=== PATIENT | male | born 1945 | race Caucasian/White ===

== ENCOUNTER 2020-06-18 13:14 | Emergency (ER) | payer OTHER ==
[~2020-06-18] VITALS: Ht 180.3 cm; Wt 64.4 kg
--- NOTE | 2020-06-18 13:25 | NUR ---
Patient to ER bed 03 to gown for evaluation. Side rails up.
[2020-06-18 13:30] VITALS: BP_SYST 114
--- NOTE | 2020-06-18 13:30 | NUR ---
pt arrives from home w/ c/o rectal bleeding for almost one year. Pt has not been able to see a GI doctor. Pt states seeing blood on the toliet paper when she wipes. VVS are stable. Will continue to monitor
[2020-06-18] MEDS ORDERED: PANTOPRAZOLE SODIUM 40 MG/VIAL (PROTONIX) IVP ONE (13:45)
--- NOTE | 2020-06-18 13:48 | NUR ---
ER at bedside examining patient.
--- NOTE | 2020-06-18 14:00 | NUR ---
# 20 gauge angiocath placed to RAC. Use of asceptic technique. Opsite placed over site. Blood return noted. Blood for lab drawn from site. Flushed with 10 cc of normal saline. No evidence of infiltration noted. Patient tolerated well.
--- NOTE | 2020-06-18 14:10 | NUR ---
Patient transported to radiology via gurney, accompanied by public health technologist.
--- NOTE | 2020-06-18 14:30 | NUR ---
medicated the w/ Portonix per MD order
[2020-06-18 14:37] LABS: BASOPHILS # (AUTO) 0.1 K/uL (0.0-0.2); BASOPHILS % (AUTO) 0.6 % (0.0-2.0); EOSINOPHILS # (AUTO) 1.1 K/uL (0.0-0.4); EOSINOPHILS % (AUTO) 10.8 % (0.0-4.0); HEMATOCRIT 40.3 % (36-54); HEMOGLOBIN 13.6 g/dL (14.0-18.0); LYMPHOCYTES # (AUTO) 1.8 K/uL (1.0-5.5); LYMPHOCYTES % (AUTO) 18.1 % (20.5-51.5); MEAN CORPUSCULAR HEMOGLOBIN 34 pg (27-31); MEAN CORPUSCULAR HGB CONC 34 % (32-36); MEAN CORPUSCULAR VOLUME 101 fL (79.0-98.0); MONOCYTES # (AUTO) 0.8 K/uL (0.0-1.0); NEUTROPHILS # (AUTO) 6.2 K/uL (1.8-7.7); NEUTROPHILS % (AUTO) 62.5 % (40.0-70.0); PLATELET COUNT (AUTO) 218 K/uL (130-430); RED BLOOD CELL COUNT(AUTO) 3.98 MIL/uL (4.2-6.2); WHITE BLOOD COUNT (AUTO) 9.9 K/uL (4.8-10.8)
[2020-06-18 15:01] LABS: ANION GAP 5 (5-15); CALCIUM 8.5 mg/dL (8.4-11.0); CHLORIDE 107 mmol/L (98-107); CREATININE 1.19 mg/dL (0.55-1.30); GLUCOSE 79 mg/dL (70-99); POTASSIUM 4.1 mmol/L (3.5-5.1); SODIUM SERUM 140 mmol/L (136-145); UREA NITROGEN, BLOOD 13 mg/dL (8-21)
[2020-06-18 15:06] LABS: ALANINE AMINOTRANSFERASE 16 U/L (12-78); ALBUMIN 3.1 g/dL (3.4-4.8); ASPARTATE AMINOTRANSFERASE 17 U/L (10-37); TOTAL BILIRUBIN 0.5 mg/dL (0.0-1.0)
[2020-06-18 15:11] LABS: PROTHROMBIN TIME 9.9 SECS (9.5-12.5)
[2020-06-18 16:07] VITALS: BP_SYST 114
== END 2020-06-18 16:00 | disposition home or self-care (01) ==
LOC: SED 13:14
DX: K62.5 Hemorrhage of anus and rectum (principal); Z88.5 Allergy status to narcotic agent
CPT/HCPCS: 36415; 74176; 80053; 85025; 85610; 85730; 96374; 99284; C9113

== ENCOUNTER 2020-08-24 08:44 | Day surgery (SDC) | payer OTHER, SELFPAY ==
[~2020-08-24] VITALS: Ht 175.3 cm; Wt 67.6 kg
[~2020-08-24 08:44] MED LIST: CEFAZOLIN SOD 1 GM in D5W 50 ML IV ONE
[2020-08-24] MEDS ORDERED: DEXAMETHASONE SOD PHOSPHATE 4 MG/ML VIAL IVP ONE (10:11)
[2020-08-24] MEDS ORDERED: ONDANSETRON HCL 4 MG/2 ML VIAL IVP ONE (10:11)
[2020-08-24] MEDS ORDERED: fentaNYL CITRATE/PF 100 MCG/2 ML AMP IVP ONE (10:11)
[2020-08-24] MEDS ORDERED: MIDAZOLAM HCL 5 MG/5 ML VIAL IVP ONE (10:11)
[2020-08-24] MEDS ORDERED: NS IRRIG SOLN 1000 ML IR ONE (10:11)
[2020-08-24] MEDS ORDERED: PROPOFOL 200MG/ 20ML VIAL (DIPRIVAN) IV ONE (10:11)
[2020-08-24] MEDS ORDERED: SEVOFLURANE 15 MIN GAS INH ONE (10:11)
[2020-08-24] MEDS ORDERED: KETOROLAC TROMETHAMINE 30 MG VIAL IVP ONE (10:11)
[2020-08-24] MEDS ORDERED: MEPERIDINE HCL/PF 25 MG/ML DISP.SYRIN IVP PRN (11:00)
[2020-08-24] MEDS ORDERED: LR 1,000 ML IV SCH (11:00)
[2020-08-24] MEDS ORDERED: ONDANSETRON HCL 4 MG/2 ML VIAL IVP PRN (11:00)
[2020-08-24] MEDS ORDERED: HYDROmorphone 1 MG INJ. 1 MG/ML AMPUL IVP PRN ×2 (11:00)
[2020-08-24] MEDS ORDERED: D5/0.45 NS 1,000 ML IV SCH (11:34)
[2020-08-24] MEDS ORDERED: HYDROcodone/ACETAMIN 5-325 MG TAB (NORCO/ VICODIN) PO PRN ×2 (11:45)
[2020-08-24 12:55] VITALS: BP_SYST 116
== END 2020-08-24 16:45 | disposition home or self-care (01) ==
LOC: SDS 08:44 → SMU 08:44 → SDS 16:45
PROVIDERS: ATTEND Colon & Rectal Surgery
DX: C20 Malignant neoplasm of rectum (principal); K44.9 Diaphragmatic hernia without obstruction or gangrene; J44.9 Chronic obstructive pulmonary disease, unspecified; Z88.5 Allergy status to narcotic agent; Z20.828 Contact with and (suspected) exposure to other viral communicable diseases
CPT/HCPCS: 45171; 88305; J0690; J1100; J1885; J2250; J2405; J2704; J3010; J7060; J7120; U0003